=== PATIENT | female | born 1950 | race African-American/Black ===

== ENCOUNTER 2021-09-16 13:40 | Emergency (ER) | payer OTHER ==
[2021-09-16 13:46] VITALS: TEMP 97.9; BMI 21.9
[2021-09-16] MEDS ORDERED: ACETAMINOPHEN 1000 MG/100 ML BAG IVPB ONE (14:50)
[2021-09-16] MEDS ORDERED: ACETAMINOPHEN INJECTION 100 ML IVPB ONE (15:06)
[2021-09-16] MEDS ORDERED: LACTATED RINGERS SOLUTION 1000 ML INFUS.BAG IV ONE (15:28)
[2021-09-16 15:31] LABS: EOS % 0.8 % (0-4.5); HEMATOCRIT 43.7 % (32.4-45.2); HEMOGLOBIN 14.4 GM/dL (10.7-15.3); MCH 31.6 pg (25.7-33.7); MEAN CELL VOLUME 95.7 fl (80-96); MEAN PLT VOLUME 7.8 fl (7.5-11.1); MONO % 4.2 % (3.8-10.2); PLATELET COUNT 306 10^3/uL (134-434); RBC 4.57 M/mm3 (3.60-5.2); RDW 14.5 % (11.6-15.6); WHITE BLOOD COUNT 8.5 K/mm3 (4.0-10.0)
[2021-09-16 15:32] LABS: PH,URINE 7.5 (5.0-8.0); URINE APPEARANCE CLEAR; URINE BILIRUBIN NEGATIVE (NEGATIVE); URINE COLOR YELLOW; URINE GLUCOSE (UA) NEGATIVE (NEGATIVE); URINE KETONE NEGATIVE (NEGATIVE); URINE LEUK ESTERASE NEGATIVE (NEGATIVE); URINE NITRITE NEGATIVE (NEGATIVE); URINE PROTEIN NEGATIVE (NEGATIVE); URINE UROBILINOGEN 0.2 mg/dL (0.2-1.0)
[2021-09-16 15:53] LABS: ALBUMIN 4.3 g/dl (3.4-5.0); BLOOD UREA NITROGEN 11.2 mg/dL (7-18); CALCIUM 9.6 mg/dL (8.5-10.1)
[2021-09-16 15:56] LABS: CREATININE 0.9 mg/dL (0.55-1.3)
[2021-09-16 15:58] LABS: BILIRUBIN,TOTAL 0.9 mg/dL (0.2-1); TOT PROT 8.6 g/dl (6.4-8.2)
[2021-09-16 18:41] VITALS: BP 174/91; PULSE 69
== END 2021-09-16 18:41 | disposition home or self-care (01) ==
LOC: JER 13:40
PROC: 3E033GC Introduction of Other Therapeutic Substance into Peripheral Vein, Percutaneous Approach (ICD-10-PCS; principal; 2021-09-16)
DX: R10.32 Left lower quadrant pain (principal); R30.0 Dysuria
CPT/HCPCS: 36415; 74177-TC; 76775-TC; 80053; 81003; 85025; 87086; 96374; 99285-25